=== PATIENT | male | born 1960 | race Two or more races ===

== ENCOUNTER 2018-03-15 18:35 | Inpatient (IN) | payer MEDICARE, OTHER ==
[2018-03-15 19:13] LABS: ADD MAN DIFF? NO
[2018-03-15 19:15] LABS: WHITE BLOOD COUNT 6.4 10^3/ul (4.8-10.8)
[2018-03-15 19:15] LABS: EOSINOPHILS # 0.1 10^3/ul (0.0-0.5); EOSINOPHILS % 1.6 % (0.0-7.0); HEMATOCRIT 46.3 % (42.0-52.0); HEMOGLOBIN 15.3 g/dl (14.0-18.0); LYMPHOCYTES # 1.3 10^3/ul (0.8-2.9); LYMPHOCYTES % 19.7 % (15.0-51.0); MEAN CORPUSCULAR HEMOGLOBIN 30.7 pg (29.0-33.0); MEAN CORPUSCULAR VOLUME 92.8 fl (82.0-101.0); MEAN PLATELET VOLUME 9.9 fl (7.4-10.4); MONOCYTE # 0.3 10^3/ul (0.3-0.9); MONOCYTES % 4.1 % (0.0-11.0); NEUTROPHIL # 4.8 10^3/ul (1.6-7.5); NEUTROPHILS % 74.3 % (39.0-77.0); PLATELET COUNT 177 10^3/UL (140-415); RED BLOOD COUNT 4.99 10^6/ul (4.70-6.10); RED CELL DISTRIBUTION WIDTH 13.2 % (11.5-14.5)
[2018-03-15 19:34] LABS: ALANINE AMINOTRANSFERASE 24 IU/L (13-69); ALBUMIN 4.3 g/dl (3.3-4.9); ALBUMIN/GLOBULIN RATIO 1.53; ALKALINE PHOSPHATASE 50 IU/L (42-121); ANION GAP 11 (5-13); ASPARTATE AMINO TRANSFERASE 26 IU/L (15-46); BILIRUBIN,INDIRECT 0.7 mg/dl (0-1.1); BILIRUBIN,TOTAL 0.7 mg/dl (0.2-1.3); BLOOD UREA NITROGEN 22 mg/dl (7-20); CALCIUM 9.4 mg/dl (8.4-10.2); CARBON DIOXIDE 26 mmol/L (21-31); CHLORIDE 106 mmol/L (97-110); Estimated GFR > 60 mL/min (>60); GLUCOSE 119 mg/dl (70-220); POTASSIUM 3.8 mmol/L (3.5-5.1); SODIUM 143 mmol/L (135-144); TOTAL PROTEIN 7.1 g/dl (6.1-8.1)
[2018-03-15 19:37] LABS: INR 1.03; PROTIME 13.6 Sec (11.9-14.9); PT RATIO 1.1
[2018-03-15 19:45] LABS: B-TYPE NATRIURETIC PEPTIDE 1170 PG/ML (0-125); TROPONIN-I 0.028 ng/ml (0.000-0.120)
[2018-03-15] MEDS: FUROSEMIDE 40 MG INJ IV (21:24)
[2018-03-15] MEDS ORDERED: morphine 2 MG INJ IV (22:00)
[2018-03-15] MEDS ORDERED: NITROGLYCERIN (SL) 0.4 MG TAB SL (22:00)
[2018-03-15] MEDS ORDERED: ACETAMINOPHEN 325 MG TAB PO (22:00)
[2018-03-15] MEDS ORDERED: ONDANSETRON 4 MG INJ IV (22:00)
[2018-03-15] MEDS ORDERED: DOCUSATE SODIUM 100 MG CAP PO (22:00)
[2018-03-15] MEDS ORDERED: NACL 0.9% 3 ML SYG IV (22:00)
[2018-03-15] MEDS ORDERED: BISACODYL (EC) 5 MG TAB PO (22:00)
[2018-03-15 23:28] LABS: CREATINE KINASE 172 IU/L (23-200)
[2018-03-15 23:41] LABS: CK INDEX 1.1; CK-MB 1.95 ng/ml (0.0-2.4); TROPONIN-I 0.035 ng/ml (0.000-0.120)
[2018-03-15] MEDS ORDERED: HEPARIN 5,000 UNIT/0.5 ML VIAL (23:44)
[2018-03-16] MEDS: HEPARIN 5,000 UNIT/1 ML VIAL SC ×4 (00:04→21:49)
[2018-03-16 05:01] LABS: ADD MAN DIFF? NO
[2018-03-16] MEDS ORDERED: HEPARIN 5,000 UNIT/0.5 ML VIAL ×3 (05:08→21:23)
[2018-03-16 05:09] LABS: WHITE BLOOD COUNT 7.8 10^3/ul (4.8-10.8)
[2018-03-16 05:09] LABS: BASOPHILS % 0.3 % (0.0-2.0); EOSINOPHILS # 0.3 10^3/ul (0.0-0.5); EOSINOPHILS % 3.2 % (0.0-7.0); HEMATOCRIT 43.8 % (42.0-52.0); HEMOGLOBIN 14.8 g/dl (14.0-18.0); LYMPHOCYTES # 2.8 10^3/ul (0.8-2.9); LYMPHOCYTES % 35.7 % (15.0-51.0); MEAN CORPUSCULAR HEMOGLOBIN 30.8 pg (29.0-33.0); MEAN CORPUSCULAR HGB CONC 33.8 g/dl (32.0-37.0); MEAN CORPUSCULAR VOLUME 91.1 fl (82.0-101.0); MEAN PLATELET VOLUME 10.3 fl (7.4-10.4); MONOCYTE # 0.5 10^3/ul (0.3-0.9); MONOCYTES % 6.4 % (0.0-11.0); NEUTROPHIL # 4.2 10^3/ul (1.6-7.5); NEUTROPHILS % 54.1 % (39.0-77.0); PLATELET COUNT 173 10^3/UL (140-415); RED BLOOD COUNT 4.81 10^6/ul (4.70-6.10); RED CELL DISTRIBUTION WIDTH 13.2 % (11.5-14.5)
[2018-03-16 05:17] LABS: HEMOGLOBIN A1C 5.7 % (0-5.9)
[2018-03-16 05:30] LABS: ALANINE AMINOTRANSFERASE 28 IU/L (13-69); ALBUMIN 4.2 g/dl (3.3-4.9); ALKALINE PHOSPHATASE 47 IU/L (42-121); ANION GAP 10 (5-13); ASPARTATE AMINO TRANSFERASE 23 IU/L (15-46); BILIRUBIN,INDIRECT 0.6 mg/dl (0-1.1); BILIRUBIN,TOTAL 0.6 mg/dl (0.2-1.3); BLOOD UREA NITROGEN 17 mg/dl (7-20); CALCIUM 9.1 mg/dl (8.4-10.2); CARBON DIOXIDE 27 mmol/L (21-31); CHLORIDE 106 mmol/L (97-110); CHOL/HDL RATIO 2.6 RATIO; CHOLESTEROL 141 mg/dl (100-200); CREATININE 0.74 mg/dl (0.61-1.24); Estimated GFR > 60 mL/min (>60); GLUCOSE 101 mg/dl (70-220); HDL CHOLESTEROL 54 mg/dl (28-71); LDL CHOLESTEROL,CALCULATED 74 mg/dl; MAGNESIUM 1.9 mg/dl (1.7-2.5); POTASSIUM 3.5 mmol/L (3.5-5.1); SODIUM 143 mmol/L (135-144); TOTAL PROTEIN 6.4 g/dl (6.1-8.1); TRIGLYCERIDES 67 mg/dl (0-149)
[2018-03-16 05:31] LABS: CREATINE KINASE 144 IU/L (23-200)
[2018-03-16 05:32] LABS: D-DIMER 732.81 ng/ml (<460)
[2018-03-16 05:38] LABS: CK INDEX 1.2; CK-MB 1.67 ng/ml (0.0-2.4); TROPONIN-I 0.031 ng/ml (0.000-0.120)
[2018-03-16] MEDS: ASPIRIN (EC) 81 MG TAB PO (09:00)
[2018-03-16] MEDS: LOSARTAN 50 MG TAB PO (09:21)
[2018-03-16] MEDS: ASPIRIN 81 MG TAB PO (09:21)
[2018-03-16] MEDS: FUROSEMIDE 40 MG INJ IV ×2 (09:22→20:51)
[2018-03-16] MEDS: IODIXANOL LOCM 100 ML BTL (11:20)
[2018-03-16] MEDS: SOD CHLORIDE 0.9% 100 ML (11:20)
[2018-03-16] MEDS: ATORVASTATIN 20 MG TAB PO (20:51)
[2018-03-17] MEDS ORDERED: HEPARIN 5,000 UNIT/0.5 ML VIAL (05:08)
[2018-03-17] MEDS: HEPARIN 5,000 UNIT/1 ML VIAL SC (05:32)
[2018-03-17 05:37] LABS: ADD MAN DIFF? NO
[2018-03-17 05:48] LABS: BASOPHILS % 0.1 % (0.0-2.0); EOSINOPHILS # 0.3 10^3/ul (0.0-0.5); EOSINOPHILS % 2.8 % (0.0-7.0); HEMATOCRIT 44.7 % (42.0-52.0); LYMPHOCYTES # 2.6 10^3/ul (0.8-2.9); LYMPHOCYTES % 28.4 % (15.0-51.0); MEAN CORPUSCULAR HEMOGLOBIN 30.7 pg (29.0-33.0); MEAN CORPUSCULAR HGB CONC 33.6 g/dl (32.0-37.0); MEAN CORPUSCULAR VOLUME 91.4 fl (82.0-101.0); MEAN PLATELET VOLUME 10.1 fl (7.4-10.4); MONOCYTE # 0.6 10^3/ul (0.3-0.9); MONOCYTES % 7.1 % (0.0-11.0); NEUTROPHIL # 5.6 10^3/ul (1.6-7.5); NEUTROPHILS % 61.4 % (39.0-77.0); PLATELET COUNT 170 10^3/UL (140-415); RED BLOOD COUNT 4.89 10^6/ul (4.70-6.10); RED CELL DISTRIBUTION WIDTH 13.4 % (11.5-14.5)
[2018-03-17 06:07] LABS: MAGNESIUM 2.1 mg/dl (1.7-2.5)
[2018-03-17 06:11] LABS: ANION GAP 11 (5-13); BLOOD UREA NITROGEN 20 mg/dl (7-20); CARBON DIOXIDE 28 mmol/L (21-31); CHLORIDE 106 mmol/L (97-110); CREATININE 0.84 mg/dl (0.61-1.24); Estimated GFR > 60 mL/min (>60); GLUCOSE 107 mg/dl (70-220); POTASSIUM 3.5 mmol/L (3.5-5.1); SODIUM 145 mmol/L (135-144)
[2018-03-17] MEDS: LOSARTAN 50 MG TAB PO (08:59)
[2018-03-17] MEDS: FUROSEMIDE 40 MG INJ IV (08:59)
[2018-03-17] MEDS: ASPIRIN (EC) 81 MG TAB PO (09:03)
== END 2018-03-17 13:10 | disposition home or self-care (01) | DRG 293 ==
LOC: E/R 18:35 → 6WM 21:15
DX: I11.0 Hypertensive heart disease with heart failure (principal); I50.23 Acute on chronic systolic (congestive) heart failure; I42.9 Cardiomyopathy, unspecified; I25.10 Atherosclerotic heart disease of native coronary artery without angina pectoris; E78.5 Hyperlipidemia, unspecified; E11.9 Type 2 diabetes mellitus without complications; F17.210 Nicotine dependence, cigarettes, uncomplicated; E66.9 Obesity, unspecified; Z68.38 Body mass index [BMI] 38.0-38.9, adult; I25.2 Old myocardial infarction; Z95.810 Presence of automatic (implantable) cardiac defibrillator; Z79.82 Long term (current) use of aspirin; Z79.84 Long term (current) use of oral hypoglycemic drugs
CPT/HCPCS: 36415; 71045; 71275; 80048; 80053; 80061; 82550; 82553; 82962; 83036; 83735; 83880; 84100; 84443; 84484; 85025; 85378; 85610; 93005; 93306; 93970; 99285-25

== ENCOUNTER 2018-04-02 05:25 | Inpatient (IN) | payer MEDICARE, OTHER ==
[2018-04-02] MEDS: ASPIRIN 81 MG TAB PO (05:31)
[2018-04-02] MEDS: morphine 4 MG/ML VIAL IV (05:31)
[2018-04-02] MEDS: NITROGLYCERIN 50 MG/D5W (PMX) 250 ML IV (05:42)
[2018-04-02 05:47] LABS: ADD MAN DIFF? NO
[2018-04-02 05:53] LABS: WHITE BLOOD COUNT 15.3 10^3/ul (4.8-10.8)
[2018-04-02 05:53] LABS: ABNORMAL IP MESSAGE 1; BASOPHILS % 0.3 % (0.0-2.0); EOSINOPHILS # 0.5 10^3/ul (0.0-0.5); EOSINOPHILS % 3.4 % (0.0-7.0); HEMATOCRIT 54.5 % (42.0-52.0); HEMOGLOBIN 17.4 g/dl (14.0-18.0); LYMPHOCYTES # 8.1 10^3/ul (0.8-2.9); MEAN CORPUSCULAR HEMOGLOBIN 30.4 pg (29.0-33.0); MEAN CORPUSCULAR HGB CONC 31.9 g/dl (32.0-37.0); MEAN CORPUSCULAR VOLUME 95.3 fl (82.0-101.0); MEAN PLATELET VOLUME 10.8 fl (7.4-10.4); MONOCYTE # 1.1 10^3/ul (0.3-0.9); MONOCYTES % 7.2 % (0.0-11.0); NEUTROPHIL # 5.5 10^3/ul (1.6-7.5); NEUTROPHILS % 35.8 % (39.0-77.0); PLATELET COUNT 248 10^3/UL (140-415); POSITIVE DIFF @See below; RED BLOOD COUNT 5.72 10^6/ul (4.70-6.10); RED CELL DISTRIBUTION WIDTH 12.9 % (11.5-14.5)
[2018-04-02] MEDS ORDERED: LEVALBUTEROL (NEB) 1.25 MG/0.5 ML AMP (05:53)
[2018-04-02] MEDS ORDERED: IPRATROPIUM (NEB) 0.5 MG/2.5 ML AMP (05:53)
[2018-04-02] MEDS ORDERED: DOCUSATE SODIUM 100 MG CAP PO (06:00)
[2018-04-02] MEDS ORDERED: IPRATROPIUM (NEB) 0.5 MG/2.5 ML AMP NEB (06:00)
[2018-04-02] MEDS ORDERED: ONDANSETRON 4 MG INJ IV (06:00)
[2018-04-02] MEDS ORDERED: BISACODYL (EC) 5 MG TAB PO (06:00)
[2018-04-02] MEDS ORDERED: ACETAMINOPHEN 650MG/20.3ML CUP PO (06:00)
[2018-04-02 06:12] LABS: INR 0.92; PROTIME 12.4 Sec (11.9-14.9)
[2018-04-02 06:16] LABS: ALANINE AMINOTRANSFERASE 27 IU/L (13-69); ALBUMIN 5.3 g/dl (3.3-4.9); ALBUMIN/GLOBULIN RATIO 1.55; ALKALINE PHOSPHATASE 66 IU/L (42-121); ANION GAP 19 (5-13); ASPARTATE AMINO TRANSFERASE 33 IU/L (15-46); BILIRUBIN,INDIRECT 0.4 mg/dl (0-1.1); BILIRUBIN,TOTAL 0.4 mg/dl (0.2-1.3); BLOOD UREA NITROGEN 20 mg/dl (7-20); CALCIUM 9.7 mg/dl (8.4-10.2); CARBON DIOXIDE 23 mmol/L (21-31); CHLORIDE 107 mmol/L (97-110); CREATININE 0.88 mg/dl (0.61-1.24); Estimated GFR > 60 mL/min (>60); GLUCOSE 196 mg/dl (70-220); POTASSIUM 5.2 mmol/L (3.5-5.1); SODIUM 149 mmol/L (135-144); TOTAL PROTEIN 8.7 g/dl (6.1-8.1)
[2018-04-02 06:26] LABS: B-TYPE NATRIURETIC PEPTIDE 1750 PG/ML (0-125)
[2018-04-02 06:27] LABS: AADO2 Arterial 178.8 mmHg (7.0-24.0); Allen Test ACCEPTAB; Arterial Base Excess -5.2 mmol/L (-3.0-3); Arterial Blood Gas Oxygen Sat 99.2 mmHG (95.0-98.0); Arterial COHb 0.4 % (0.0-3.0); Arterial Fraction of Oxyhgb 98.4 % (93.0-99.0); Arterial HCO3 24.8 mmol/L (22.0-26.0); Arterial MetHb 0.4 % (0.0-1.5); Arterial pCO2 67.1 mmhg (35-45); Blood Gas IEPAP 18/5; Blood Gas PS 13; MODE MASK - BIPAP; Site Right Radial
[2018-04-02] MEDS ORDERED: FUROSEMIDE 20 MG INJ (06:38)
[2018-04-02] MEDS: FUROSEMIDE 100 MG INJ IV (06:48)
[2018-04-02] MEDS: PANTOPRAZOLE 40 MG INJ IV (06:48)
[2018-04-02 08:03] LABS: HEMOGLOBIN A1C 5.6 % (0-5.9)
[2018-04-02] MEDS: ASPIRIN (EC) 81 MG TAB PO (09:00)
[2018-04-02] MEDS: ENOXAPARIN 40 MG/0.4 ML SYG SC (11:05)
[2018-04-02 11:57] LABS: LACTIC ACID 1.4 mmol/L (0.5-2.0)
[2018-04-02 11:59] LABS: CREATINE KINASE 173 IU/L (23-200)
[2018-04-02 12:09] LABS: CK INDEX 2.1
[2018-04-02] MEDS: LOSARTAN 50 MG TAB PO (13:39)
[2018-04-02 14:39] LABS: CREATINE KINASE 223 IU/L (23-200)
[2018-04-02 14:49] LABS: CK INDEX 1.7
[2018-04-02 15:07] LABS: CK-MB 3.85 ng/ml (0.0-2.4)
[2018-04-02 15:08] LABS: TROPONIN-I 0.156 ng/ml (0.000-0.120)
[2018-04-02] MEDS: CLOPIDOGREL 75 MG TAB PO (15:37)
[2018-04-02] MEDS: FUROSEMIDE 40 MG INJ IV (18:41)
[2018-04-02] MEDS: ATORVASTATIN 20 MG TAB PO (20:18)
[2018-04-02 20:44] LABS: CREATINE KINASE 263 IU/L (23-200)
[2018-04-02 20:56] LABS: CK INDEX 1.2
[2018-04-02 20:58] LABS: CK-MB 3.21 ng/ml (0.0-2.4)
[2018-04-02 20:59] LABS: TROPONIN-I 0.126 ng/ml (0.000-0.120)
[2018-04-02] MEDS: TAMSULOSIN (SR) 0.4 MG CAP PO (23:43)
[2018-04-03] MEDS: FUROSEMIDE 40 MG INJ IV (05:39)
[2018-04-03] MEDS: ASPIRIN (EC) 81 MG TAB PO (08:27)
[2018-04-03] MEDS: TAMSULOSIN (SR) 0.4 MG CAP PO (08:27)
[2018-04-03] MEDS: CLOPIDOGREL 75 MG TAB PO (08:27)
[2018-04-03] MEDS: LOSARTAN 50 MG TAB PO (08:27)
[2018-04-03] MEDS: ENOXAPARIN 40 MG/0.4 ML SYG SC (08:36)
== END 2018-04-03 16:20 | disposition home or self-care (01) | DRG 291 ==
LOC: E/R 05:25 → ICU 05:48 → TEL 19:18
DX: I11.0 Hypertensive heart disease with heart failure (principal); J96.00 Acute respiratory failure, unspecified whether with hypoxia or hypercapnia; I16.1 Hypertensive emergency; E87.2 Acidosis; I50.43 Acute on chronic combined systolic (congestive) and diastolic (congestive) heart failure; Z72.0 Tobacco use; I25.2 Old myocardial infarction; Z95.810 Presence of automatic (implantable) cardiac defibrillator; G47.30 Sleep apnea, unspecified; E11.9 Type 2 diabetes mellitus without complications; Z91.11 Patient's noncompliance with dietary regimen; Z91.14 Patient's other noncompliance with medication regimen; N40.0 Benign prostatic hyperplasia without lower urinary tract symptoms
CPT/HCPCS: 36415; 36600; 71045; 80053; 82550; 82553; 82803; 83036; 83605; 83880; 84484; 85025; 85610; 85730; 87040; 87081; 93005; 93306; 94660; 96374; 99285-25